=== PATIENT | female | born 1965 | race Caucasian/White ===

== ENCOUNTER 2016-12-16 03:34 | Emergency (ER) | payer MEDICAID ==
[~2016-12-16] VITALS: Ht 142.2 cm; Wt 59.9 kg
[2016-12-16 03:45] VITALS: BP 144/68
== END 2016-12-16 06:09 | disposition left against medical advice (07) ==
LOC: ER 03:34 → EDBD 03:34 → ER 05:59
DX: M54.9 Dorsalgia, unspecified (principal); Z53.21 Procedure and treatment not carried out due to patient leaving prior to being seen by health care provider

== ENCOUNTER 2017-06-28 21:58 | Emergency (ER) | payer MEDICAID | END 2017-06-28 22:05 | disposition left against medical advice (07) | LOC: ER 21:58 | DX: T78.40XA Allergy, unspecified, initial encounter (principal); Z53.21 Procedure and treatment not carried out due to patient leaving prior to being seen by health care provider ==

== ENCOUNTER 2020-05-30 17:35 | Inpatient (IN) | payer MEDICAID ==
[~2020-05-30] VITALS: Ht 157.5 cm; Wt 70.4 kg
[2020-05-30 18:49] LABS: Basophils # (auto) 0.1 10 ^3/uL (0-0.2); Basophils % (auto) 0.9 % (0.0-2.0); Eosinophils # (auto) 0.2 10 ^3/uL (0-0.8); Eosinophils % (auto) 2.4 % (0.0-7.0); Hematocrit 39.8 % (36.0-46.0); Hemoglobin 13.5 g/dL (12.2-16.2); Lymphocytes # (auto) 1.3 10 ^3/uL (0.4-5.4); Lymphocytes % (auto) 18.5 % (10.0-50.0); Mean Corpuscular Hemoglobin 29.4 pg (28.0-32.0); Mean Corpuscular Hgb Conc. 33.9 g/dL (32.0-36.0); Mean Corpuscular Volume 86.7 fL (80.0-100.0); Monocytes # (auto) 0.6 10 ^3/uL (0-1.3); Monocytes % (auto) 7.9 % (0.0-12.0); Neutrophils % (auto) 70.3 % (37.0-80.0); Nucleated Red Blood Cells % 0.1 %; Platelet Count (auto) 438 10^3/uL (140-450); Red Blood Cells 4.59 10^6/uL (4.0-5.20); Red Cell Distribution Width 13.9 % (11.8-14.3); White Blood Cell 7.1 10^3/uL (4.4-10.8)
[2020-05-30 18:55] LABS: Alanine Aminotransferase 27 U/L (13-56); Albumin 3.3 g/dL (3.4-5.0); Anion Gap 4 (5-15); Blood Urea Nitrogen 15 mg/dL (7-18); Calcium 8.6 mg/dL (8.5-10.1); Carbon Dioxide 27 mmol/L (21-32); Chloride 108 mmol/L (98-107); Glucose 106 mg/dL (74-106); Magnesium 2.4 mg/dL (1.6-2.6); Potassium 3.5 mmol/L (3.5-5.1); Sodium 139 mmol/L (136-145)
[2020-05-30 19:01] LABS: Alkaline Phosphatase 128 U/L (45-117); Aspartate Aminotransferase 16 U/L (15-37); BUN/Creatinine Ratio 21.7; Bilirubin, Total 0.2 mg/dL (0.2-1.0); GFR African American 114 mL/min; GFR Non-African American 94 mL/min; Total Protein 8.5 g/dL (6.4-8.2)
[2020-05-30] MEDS ORDERED: ONDANSETRON HCL 4 MG/2 ML VIAL IV PRN (21:30)
[2020-05-30] MEDS ORDERED: SUMAtriptan SUCCINATE 25 MG TAB PO ONE (21:30)
[2020-05-30] MEDS ORDERED: TEMAZEPAM 15 MG CAP PO PRN (21:30)
[2020-05-30] MEDS ORDERED: ACETAMINOPHEN 325 MG TAB PO PRN (21:30)
[2020-05-30] MEDS ORDERED: ATORVASTATIN 20 MG TAB PO SCH (22:00)
[2020-05-30] MEDS: FAMOTIDINE 20 MG TAB PO SCH (22:42)
[2020-05-30 23:03] VITALS: BP 119/64
--- NOTE | 2020-05-30 23:03 | NUR ---
MS admit from ER ANDRAEDELFINO admitted to tele/MS after no SBAR received. Patient oriented to AMARI DAVIS RN primary RN, central wing, room 217, bed A, and unit policies regarding patient care and visiting hours. Bed locked in lowest position, side rails up X2, call light within reach. Admitting vitals; 119/64 81 HR, 18 RR, 96% on room air. No signs of SOB or distress. Right wrist 22 gauge saline locked. Patient weighed by bedscale and encouraged to call if they need something. All questions and concerns addressed, patient verbalized understanding.
[2020-05-31] VITALS (7 sets, daily range): BP systolic 117–158; BP diastolic 62–78
[2020-05-31] MEDS ORDERED: SUMAtriptan SUCCINATE 25 MG TAB PO PRN
--- NOTE | 2020-05-31 01:03 | NUR ---
Rounds Patient asleep on left lateral side. No signs of distress/ SOB.
--- NOTE | 2020-05-31 02:20 | NUR ---
Incontinent Patient states "I did not know I was incontinent, get me out of this wet bed" Patient is changed into new gown and new sheets fitted on bed. Educated on calling for assistance onto a bedpan.
--- NOTE | 2020-05-31 05:10 | NUR ---
Patient states "There is bugs biting my legs, get it off, get it off" ecg leads were removed from left leg and patient is now resting.
--- NOTE | 2020-05-31 06:35 | NUR ---
LAB Patient refused lab draw, states, "I am tired of being poked, they already blew up all my veins" Educated on blood draws, patient states, " I will think about it and maybe they can try later"
--- NOTE | 2020-05-31 07:10 | NUR ---
Closing note Care endorsed to Casi WALKER. Patient resting in bed locked in lowest position, side rails up X2, call light within reach. No signs of SOB or distress.
--- NOTE | 2020-05-31 07:30 | NUR ---
Opening Shift Note Assumed care of patient, awake and alert. No S/S of distress/SOB or pain. Instructed on POC and to call for assist PRN, will continue to monitor for changes Q1hr and PRN. Bed is locked and in lowest position. Call light within reach.
--- NOTE | 2020-05-31 08:20 | NUR ---
PATIENT C/O VAGINAL ITCH AND DISCOMFORT WHEN WHIPPING AFTER URINATING IN BED [place]. PATIENT STATES IT COULD BE DUE TO NOT HAVE BEEN SHOWERED OR CLEANED IN THE LAST FIVE DAYS. DR WILL BE NOTIFIED OF PATIENTS NEW C/O VAGINAL ITCH AND DISCOMFORT. WILL CONTINUE TO MONITOR PATIENT.
--- NOTE | 2020-05-31 08:50 | NUR ---
PATIENT WHEELED DOWN FOR MRI. PATIENT TRANSFERRED FROM BED TO WHEELCHAIR WITH MODERATE ASSISTANCE. WILL AWAIT PATIENT RETURN.
[2020-05-31] MEDS: ENOXAPARIN SOD 40 MG/0.4 ML SYRINGE SC SCH (09:53)
[2020-05-31] MEDS: FAMOTIDINE 20 MG TAB PO SCH ×2 (09:53→20:27)
[2020-05-31] MEDS ORDERED: ASPirin 81 mg TAB PO SCH (10:00)
[2020-05-31 10:26] LABS: Basophils # (auto) 0.1 10 ^3/uL (0-0.2); Basophils % (auto) 1.3 % (0.0-2.0); Eosinophils # (auto) 0.1 10 ^3/uL (0-0.8); Eosinophils % (auto) 1.9 % (0.0-7.0); Hematocrit 40.7 % (36.0-46.0); Hemoglobin 13.2 g/dL (12.2-16.2); Lymphocytes # (auto) 1.1 10 ^3/uL (0.4-5.4); Lymphocytes % (auto) 14.4 % (10.0-50.0); Mean Corpuscular Hemoglobin 28.9 pg (28.0-32.0); Mean Corpuscular Hgb Conc. 32.6 g/dL (32.0-36.0); Mean Corpuscular Volume 88.8 fL (80.0-100.0); Monocytes # (auto) 0.3 10 ^3/uL (0-1.3); Monocytes % (auto) 4.2 % (0.0-12.0); Neutrophils # (auto) 5.7 10 ^3/uL (1.6-8.6); Neutrophils % (auto) 78.2 % (37.0-80.0); Nucleated Red Blood Cells % 0.1 %; Platelet Count (auto) 380 10^3/uL (140-450); Red Blood Cells 4.58 10^6/uL (4.0-5.20); Red Cell Distribution Width 14.1 % (11.8-14.3); White Blood Cell 7.3 10^3/uL (4.4-10.8)
[2020-05-31 10:46] LABS: BUN/Creatinine Ratio 21.2; Calcium 8.9 mg/dL (8.5-10.1); Potassium 3.8 mmol/L (3.5-5.1)
--- NOTE | 2020-05-31 13:34 | NUR ---
PHONE CALL RECEIVED FROM DAUGHTER CONCERN REGARDING MOTHER POC. DAUGHTER STATES PATIENT DOES NOT HAVE A HOME AND IS WORRIED REGARDING PATIENT MOBILITY. DAUGHTER IS UNABLE TO CARE FOR MOTHER DUE TO HER LIVING WITH ANOTHER FAMILY. PATIENT HAS [facility] INSURANCE AND DAUGHTER STATES SHE WOULD LIKE A SNF PLACEMENT FOR MOTHER. INFORMED DAUGHTER A SOCIAL SERVICE CONSULTATION WAS PUT IN PLACE. PATIENT WILL BE FOLLOWED BY [employer] REGARDING PLACEMENT.
[2020-05-31] MEDS ORDERED: cefTRIAXone 1GM/50ML D5W 50 ML IV ONE (14:00)
--- NOTE | 2020-05-31 15:01 | NUR ---
MD HEAVENLY BURDICK, PT REQUESTING MEDICATIONS FOR ANXIETY, STATES SHE TAKES XANAX AT HOME, CONT CARE
--- NOTE | 2020-05-31 16:09 | NUR ---
SWALLOW EVALUATED. PATIENT HAS NATURAL TEETH LOWER AND DENTURES UPPER. ALERT AND ABLE TO FOLLOW COMMANDS. PATIENT ABLE TO TOELRATE REGULAR TEXTURE WITH THIN LIQUIDS WITH NO OVERT SIGNS OR SYMPTOMS OF ASPIRATION. NURSING NOTIFIED.
[2020-05-31 16:28] LABS: Urine Bacteria FEW /hpf (None Seen); Urine Blood Negative /uL (Negative); Urine Mucus FEW (None Seen); Urine Specific Gravity 1.024 (1.001-1.035); Urine WBC 3 /hpf (0 - 5)
[2020-05-31 16:31] LABS: Alcohol, Urine < 3.0 mg/dL (0-10); Amphetamine Screen, Urine NEGATIVE (NEGATIVE); Barbiturate Scree,Urine NEGATIVE (NEGATIVE); Benzodiazephine Screen, Urine POSITIVE (NEGATIVE); Cannabinoid Screen, Urine NEGATIVE (NEGATIVE); Cocaine Screen, Urine NEGATIVE (NEGATIVE); Opiate Scree,Urine NEGATIVE (NEGATIVE); Phencyclidine Screen, Urine NEGATIVE (NEGATIVE)
[2020-05-31] MEDS: LORazepam 2MG/ML-1ML VIAL IV PRN (16:35)
[2020-05-31] MEDS: HYDROcodone-ACET 5/325MG TAB PO PRN (18:31)
--- NOTE | 2020-05-31 19:30 | NUR ---
Opening Shift Note Assumed care of patient, awake and alert. Bed locked in lowest position, side rails up X2, call light within reach. No S/S of distress/SOB or pain. Instructed on POC and to call for assist PRN, will continue to monitor for changes Q1hr and PRN.
[2020-05-31] MEDS: ATORVASTATIN 20 MG TAB PO SCH (20:28)
[2020-05-31] MEDS: SODIUM CHLORIDE 0.9% 1,000 ML IV SCH (21:45)
[2020-05-31] MEDS: METOCLOPRAMIDE HCL 10 MG TAB PO SCH (22:55)
--- NOTE | 2020-05-31 23:15 | NUR ---
at bedside. MD Caldera at bedside for evaluation and treatment for acute episode. Further orders received for reglan 15MG Q8 and NS @100 ML/HR carried out.
[2020-06-01 05:00] VITALS: BP 110/62
[2020-06-01] MEDS: METOCLOPRAMIDE HCL 10 MG TAB PO SCH ×3 (05:20→22:09)
[2020-06-01] MEDS: SODIUM CHLORIDE 0.9% 1,000 ML IV SCH ×2 (05:20→14:48)
--- NOTE | 2020-06-01 07:20 | NUR ---
Closing note Patient resting in bed locked in lowest position, side rails up X2, call light within reach. No signs of distress, or SOB.
--- NOTE | 2020-06-01 07:45 | NUR ---
oepning note Assumed care of patient from noc RN Montez. Patient is aox4, no s/s of distress or SOB noted. Bed is in lowest locked position, side rails up x2, and call light within reach. Updated patient on plan of care and patient verbalized understanding. Will continue to monitor q1hr and PRN.
[2020-06-01 09:00] VITALS: BP 113/69
[2020-06-01] MEDS: cefTRIAXone 1GM/50ML D5W 50 ML IV SCH (09:53)
[2020-06-01] MEDS: ENOXAPARIN SOD 40 MG/0.4 ML SYRINGE SC SCH (09:53)
[2020-06-01] MEDS: HYDROcodone-ACET 5/325MG TAB PO PRN ×2 (09:55→17:09)
[2020-06-01] MEDS: FAMOTIDINE 20 MG TAB PO SCH ×2 (09:56→22:10)
[2020-06-01] MEDS: ASPirin 81 mg TAB PO SCH (09:56)
[2020-06-01] MEDS: LORazepam 2MG/ML-1ML VIAL IV PRN ×2 (09:58→22:18)
[2020-06-01] MEDS: DexAMETHasone INJECTION 10 MG in D5W 5% 50 ML IV SCH (11:29)
--- NOTE | 2020-06-01 12:15 | NUR ---
Assessment Patient is a 54-year-old female who is alert and oriented. Prior to admission patient was at [facility] and was discharge from there but has been complaining of left-side weakness and came to [facility]. Per patient prior to being hospitalize she was living with a friend and is unable to return. Per patient she would like to be placed at a skill nursing facility to get stronger. Advised patient there is a social service consult for SNF Placement. Informed patient clinical information will be faxed to contracted facilities with health plan. Informed patient it is possible she can be placed out of area if no beds in network. Patient agrees with placement. Informed patient she has the right to participate in all discharge planning. Patient verbalized understanding and agreed to discharge plan. Faxed clinical information to [facility], [facility]. [facility], [facility] accepted patient. Patient requested to stay local. Placed call to Trinity with [facility] . Per Trinity when COVID results and authorization is obtain she will assign patient with a room and following doctor. Faxed clinical information to [facility] requesting authorization for [facility]. Addendum: 06/01/20 at 1216 by RAGINI QUEEN Amended: Links added.
[2020-06-01 13:00] VITALS: BP 120/64
--- NOTE | 2020-06-01 15:30 | NUR ---
Physician rounding Dr. Schroeder at bedside. MD updated patient on plan of care and patient verbalized understanding. New orders received, will follow through.
[2020-06-01] MEDS ORDERED: LIDOCAINE HCL 2% TOP JELLY 5ML TOP PRN (16:00)
[2020-06-01 16:54] VITALS: BP 145/70
--- NOTE | 2020-06-01 19:19 | NUR ---
End of shift note Endorsed care to NOC DENISE Smith. No s/s of distress or SOB noted.
--- NOTE | 2020-06-01 19:25 | NUR ---
OPENING SHIFT NOTE Assumed care of patient from Jaime WALKER, pt is ALOCx4 and currently on RA with no S/S of distress or SOB noted. Denies pain at this time. PIV to the right wrist 22 gauge running NS @100 mls/hr. Patient is bedrest with left sided weakness, bed alarm on. POC discussed with patient and all questions answered. Bed in lowest position, locked and side rails up x2. Call light within reach and patient is encouraged to call for assistance as needed. Will continue to monitor for changes PRN.
[2020-06-01 20:00] VITALS: BP 149/75
[2020-06-01 21:00] VITALS: BP 149/73
[2020-06-01] MEDS: ACYCLOVIR 400 MG TAB PO SCH (22:09)
[2020-06-01] MEDS: ATORVASTATIN 20 MG TAB PO SCH (22:10)
[2020-06-02] MEDS: HYDROcodone-ACET 5/325MG TAB PO PRN ×2 (00:42→07:51)
[2020-06-02] MEDS: SODIUM CHLORIDE 0.9% 1,000 ML IV SCH ×2 (03:45→14:17)
[2020-06-02 05:00] VITALS: BP 118/72
[2020-06-02] MEDS: ACYCLOVIR 400 MG TAB PO SCH ×2 (06:06→14:14)
[2020-06-02] MEDS: METOCLOPRAMIDE HCL 10 MG TAB PO SCH ×2 (06:06→14:15)
--- NOTE | 2020-06-02 07:04 | NUR ---
End of shift note Endorsed care to day shift Constantine WALKER. No s/s of distress or SOB noted
--- NOTE | 2020-06-02 07:05 | NUR ---
Opening Shift Note Assumed care of patient, awake and alert. No S/S of distress/SOB or pain. Instructed on POC and to call for assist PRN, will continue to monitor for changes Q1hr and PRN. Assisted patient with ADLs. Bed locked in lowest position, HOB elevated at least 30 degrees and call light is within reach.
[2020-06-02 09:00] VITALS: BP 142/76
[2020-06-02] MEDS ORDERED: NICOTINE 21MG/24 HR TOPICAL PATCH TD SCH (10:00)
[2020-06-02] MEDS: ASPirin 81 mg TAB PO SCH (10:59)
[2020-06-02] MEDS: FAMOTIDINE 20 MG TAB PO SCH (10:59)
[2020-06-02] MEDS: ENOXAPARIN SOD 40 MG/0.4 ML SYRINGE SC SCH (11:00)
[2020-06-02] MEDS: DexAMETHasone INJECTION 10 MG in D5W 5% 50 ML IV SCH (11:01)
[2020-06-02] MEDS: cefTRIAXone 1GM/50ML D5W 50 ML IV SCH (11:01)
[2020-06-02] MEDS: LORazepam 2MG/ML-1ML VIAL IV PRN (11:16)
--- NOTE | 2020-06-02 11:50 | NUR ---
COVID SWAB COVID KOFFI SWAB COLLECTED AND WALKED TO LAB
[2020-06-02 13:00] VITALS: BP 136/70
--- NOTE | 2020-06-02 13:15 | NUR ---
MD ROUNDS DR BARRY AT BEDSIDE. NO NEW ORDERS AT THIS TIME. CONTINUE CARE.
[2020-06-02 17:00] VITALS: BP 148/77
--- NOTE | 2020-06-02 17:11 | NUR ---
D/C Planning Received a follow up called from Madina with [facility] to get an update for patient. Informed Madina COVID test was pending. Placed follow up called to [facility] spoke to Madina at 16:00 advising her COVID test result was completed. Per Madina with [facility] they are unable to accept patient and did not give a reason why they could accept patient. Placed call to [facility] and [facility]. Per Miguel with [facility] patient has been accepted to room 216a accepting , Dr. Douglass. Contact [facility] spoke to Azra . Advising [facility] is refusing to accept patient and order has been redirected to [facility]. Per Azra with [facility] auth for SNF is [id number] and transportation [id number]. Faxed transportation form request to [facility]. Per Cristina with [facility] transportation has been arranged with [employer] via [address] with a 7:00-7:30pm. Informed DENISE Fitch.
[2020-06-02 17:18] VITALS: BP 148/77
--- NOTE | 2020-06-02 18:21 | NUR ---
REPORT GIVEN REPORT GIVEN TO HUMBERTO WALKER AT [facility]
--- NOTE | 2020-06-02 19:29 | NUR ---
ENDORSED CARE TO NOC SHIFT RN
--- NOTE | 2020-06-02 19:58 | NUR ---
Discharge instructions given as ordered. All questions and concerns addressed. Patient verbalized understanding. IV removed with catheter intact, pressure dressing applied. Medication reconciliation form completed and copy given to patient. Report given to corazon at [facility]. Patient transported by [facility] with all personal belongings. No distress noted at time of departure.
== END 2020-06-02 20:00 | DRG 45 ==
LOC: ER 17:35 → EDBD 17:35 → OVERFLOW 17:36 → CENTRAL 23:03
PROVIDERS: ADMIT Nurse Practitioner; ATTEND Internal Medicine Nephrology
DX: I63.9 Cerebral infarction, unspecified (principal); R29.810 Facial weakness; F15.10 Other stimulant abuse, uncomplicated; E66.9 Obesity, unspecified; F17.210 Nicotine dependence, cigarettes, uncomplicated; R51.9 Headache, unspecified; G81.94 Hemiplegia, unspecified affecting left nondominant side; N76.5 Ulceration of vagina; B00.9 Herpesviral infection, unspecified; Z20.828 Contact with and (suspected) exposure to other viral communicable diseases; Z68.30 Body mass index [BMI] 30.0-30.9, adult
CPT/HCPCS: 36415; 70450; 70551; 71045; 80048; 80053; 80307; 81001; 82962; 83735; 84484; 85025; 85652; 86592; 86695; 86696; 87081; 87086; 87426; 92610; 93005; 93970; 97110; 97530; G0378; J0696; J1100; J7060